=== PATIENT | male | born 1995 | race Caucasian/White ===

== ENCOUNTER 2020-05-07 01:01 | Outpatient (CLI) | payer OTHER, SELFPAY ==
[2020-05-07 17:41] LABS: SARS-CoV-2 RNA PCR Negative
== END 2020-05-07 01:02 | disposition home or self-care (01) ==
LOC: ANHCOVIDDT 01:01
PROVIDERS: Anesthesiology; PCP Internal Medicine; Visit Provider Surgery
DX: Z01.812 Encounter for preprocedural laboratory examination (principal); Z20.828 Contact with and (suspected) exposure to other viral communicable diseases
CPT/HCPCS: 87635; C9803; U0003

== ENCOUNTER 2020-05-09 02:01 | Day surgery (SDC) | payer OTHER, SELFPAY ==
[2020-04-26 14:14] VITALS: BMI 25.2
--- NOTE | 2020-05-09 06:55 | WPDHPUPDATE1 ---
History and Physical Update Update Date/Time: 05/09/20 06:55 History and Physical has been reviewed, including an updated exam of the patient. There are NO changes in the patient's condition. Risks, benefits, and alternatives have been discussed and questions answered. Patient agrees to proceed with procedure.
[2020-05-09] MEDS: LACTATED RINGERS 1,000 ML 30 ML IV CONT ×2 (09:31→11:50)
[2020-05-09] MEDS: KETOROLAC 15 MG/ML VIAL (*BKC) IV PUSH (09:32)
[2020-05-09] MEDS: ACETAMINOPHEN 500 MG TABLET 1000 MG PO (09:32)
[2020-05-09 09:46] VITALS: BP 130/76; PULSE 82; RESP 16; TEMP 36.7; O2SAT 98
--- NOTE | 2020-05-09 09:58 | WPDANESEPPF ---
Anes - Initial Pre Proc Eval Procedure: Operation Date: 05/09/20 11:00 Proposed Procedures p Umbilical Hernia Repair - Oleg Roy MD Date/Time: 05/09/20 09:58 Surgeon: Oleg oRy MD Pre Op Diagnosis: umbilical hernia Patient Data Age: 24 Gender: M Height: 5 ft 10 in Weight: 78.6 kg Last Vital Signs Temp 36.7 C 05/09/20 09:46 Pulse 82 05/09/20 09:46 Resp 16 05/09/20 09:46 BP 130/76 05/09/20 09:46 Pulse Ox 98 05/09/20 09:46 Allergies Allergy/AdvReac Type Severity Reaction Status Date / Time No Known Allergies Allergy Verified 05/09/20 09:12 Home Medications Medication Instructions Recorded Confirmed Type No Home Medications 04/10/20 05/09/20 History Patient hx anesthesia problems: none Family hx anesthesia problems: none COUNT INCLUDES THE [facility] Surgical History Surgical History (Updated 05/09/20 @ 09:58 by Stanley Irwin MD) History of esophagogastroduodenoscopy (EGD) Social History Social History Smoking packs per day: 0.5 Smoking cigarettes per day: 10.0 Years smoked: 10 Smoking pack-years: 5.00 Smoking status: Current every day smoker Tobacco type: cigarettes and cigars Alcohol intake: never Living arrangements: with family Additional occupation/education comments: [employer] Gender identity (if verbalized by the patient): Male Sexual Orientation (if Verbalized by the Patient): Straight or Heterosexual Spiritual care concerns: No Anes - Eval Final PreProcedure Day of Procedure 05/09/20 09:58 Patient weight: normal Heart: regular rate and rhythm Lungs: clear to auscultation Airway: Mallampati scale class II Neurological: alert and oriented Last oral intake: >/= 8 hours ASA classification: II Emergent: no Anesthetic plan: proceed Anesthesia type and monitoring: general GIVS and standard monitoring Informed Consent: The patient's anesthetic plan and its attendant risks and benefits were discussed with the patient/family/POA. Questions were solicited and answers provided to the satisfaction of the patient/family/POA.
[2020-05-09] MEDS: ceFAZolin 2 GM/D5W 50 ML 2 GM/50 ML BAG IVPB (11:04)
--- NOTE | 2020-05-09 11:07 | PM.PROC ---
Procedure Note - Detailed Date of procedure: 05/09/20 Pre-op diagnosis: umbilical hernia Post-op diagnosis: same Procedure performed: Umbilical hernia repair Description of procedure: Patient was taken to the operating room and IV sedation was administered. Prep and drape was carried out. The proposed incision along the upper margin of the umbilicus was marked on the skin. Local anesthetic was infiltrated into the skin and the deeper subcutaneous tissues. Incision was made and dissection was carried down through the skin and to the hernia sac. The sac was then dissected free from the umbilical skin and the surrounding subcutaneous tissues. It was dissected down to its neck. Additional local anesthetic was infiltrated into the neck and the fascia surrounding the neck of the hernia sac. The sac was then amputated at its neck. The subcutaneous was undermined around the hernia defect. Additional local was infiltrated around the fascia. The hernia defect was closed with [id number] mattress sutures of 0 Ethibond. The umbilical skin was tacked to the fascia with 3 0 Vicryl suture. The subcutaneous was closed with 3 0 Vicryl. Subcuticular interrupted 4 O Vicryl skin stitches were placed. The skin was then closed with running 4 0 Monocryl subcuticular suture. Wound was dressed with Exofin surgical adhesive. The patient was awakened and taken to recovery in good condition. Counts were correct x2. Anesthesia: MAC and local (0.5% Marcaine with Exparel) Surgeon: Oleg Roy MD Paper Novelty Maker: Alfredo NIX Estimated blood loss (mL): 5 Drains: No Packing: No Pathology: none sent Complications: None Condition: stable Disposition: same day Findings: 5 millimeter hernia defect
[2020-05-09 11:51] VITALS: BP 98/47; PULSE 60; RESP 16; O2SAT 95
[2020-05-09] MEDS: BUPIVACAINE HCL 0.5% PF 30 ML VIAL INFILTRATE (11:52)
[2020-05-09 12:15] VITALS: BP 93/48; PULSE 55; RESP 16; O2SAT 95
[2020-05-09 12:45] VITALS: BP 118/74; PULSE 58; RESP 16
[2020-05-09 13:15] VITALS: BP 112/67; PULSE 52; RESP 16
== END 2020-05-09 13:33 | disposition home or self-care (01) ==
PROVIDERS: PCP Internal Medicine; Visit Provider Surgery
PROC: (CPT 49585; principal; 2020-05-09 11:00)
DX: K42.9 Umbilical hernia without obstruction or gangrene (principal); F17.210 Nicotine dependence, cigarettes, uncomplicated; F17.290 Nicotine dependence, other tobacco product, uncomplicated
CPT/HCPCS: 49585; A9270; C9290; J0690; J1100; J1170; J1885; J2250; J2405; J2704; J3010; J7120